=== PATIENT | male | born 1990 | race Caucasian/White ===

== ENCOUNTER 2018-04-27 13:09 | Emergency (ER) | payer OTHER ==
[~2018-04-27] VITALS: Ht 188 cm; Wt 109.1 kg
[~2018-04-27 13:09] MED LIST: ATEN25TA PO; OLAN5TAB2 PO
[2018-04-27] MEDS ORDERED: LIDOCAINE 5% TRANSDERMAL PATCH TD ONE (14:00)
[2018-04-27] MEDS ORDERED: ATENOLOL 25 MG TABLET PO ONE (14:00)
[2018-04-27] MEDS ORDERED: IBUPROFEN 600 MG TABLET PO ONE (14:00)
[2018-04-27 15:10] VITALS: BP 160/95
== END 2018-04-27 15:31 | disposition home or self-care (01) ==
LOC: EMS 13:12
DX: S20.212A Contusion of left front wall of thorax, initial encounter (principal); I10 Essential (primary) hypertension; F20.9 Schizophrenia, unspecified; F12.90 Cannabis use, unspecified, uncomplicated; Z87.891 Personal history of nicotine dependence; W22.8XXA Striking against or struck by other objects, initial encounter; Y93.89 Activity, other specified; Y92.098 Other place in other non-institutional residence as the place of occurrence of the external cause; Y99.8 Other external cause status

== ENCOUNTER 2018-09-28 23:32 | Emergency (ER) | payer OTHER ==
[~2018-09-28] VITALS: Ht 190.5 cm; Wt 111.4 kg
[2018-09-29] MEDS ORDERED: CloNIDine HCL 0.2 MG TABLET PO ONE (00:15)
[2018-09-29] MEDS ORDERED: LORazepam 2 MG TABLET PO ONE (00:15)
[2018-09-29 00:50] VITALS: BP 152/87
== END 2018-09-29 01:05 | disposition home or self-care (01) ==
LOC: EMS 23:35
DX: F41.9 Anxiety disorder, unspecified (principal); F15.10 Other stimulant abuse, uncomplicated; R06.02 Shortness of breath; I10 Essential (primary) hypertension; F12.90 Cannabis use, unspecified, uncomplicated; Z86.59 Personal history of other mental and behavioral disorders; Z87.891 Personal history of nicotine dependence
CPT/HCPCS: 93005; 99284; G0480

== ENCOUNTER 2018-11-30 05:19 | Emergency (ER) | payer OTHER ==
[~2018-11-30] VITALS: Ht 188 cm; Wt 111.4 kg
[2018-11-30] MEDS ORDERED: DiphenhydrAMINE HCL 50 MG/ML VIAL IVP ONE (06:15)
[2018-11-30] MEDS ORDERED: CloNIDine HCL 0.1 MG TABLET PO ONE (06:15)
[2018-11-30] MEDS ORDERED: METOCLOPRAMIDE HCL 5 MG/ML 2 ML VIAL IVP ONE (06:15)
[2018-11-30] MEDS ORDERED: SODIUM CHLORIDE 0.9% 1,000 ML IV ONE (06:15)
[2018-11-30 07:40] VITALS: BP 202/116
== END 2018-11-30 08:05 | disposition home or self-care (01) ==
LOC: EMS 05:19
DX: I10 Essential (primary) hypertension (principal); F15.10 Other stimulant abuse, uncomplicated; F43.9 Reaction to severe stress, unspecified; F17.210 Nicotine dependence, cigarettes, uncomplicated; F20.9 Schizophrenia, unspecified; Z79.899 Other long term (current) drug therapy
CPT/HCPCS: 96374; 96375; 99283; 99406; J1200; J2765; J7030

== ENCOUNTER 2019-02-15 20:47 | Emergency (ER) | payer OTHER ==
[~2019-02-15] VITALS: Ht 185.4 cm; Wt 104.5 kg
[2019-02-15 22:35] LABS: BASOPHILS % (AUTO) 0.6 % (0.0-2.0); EOSINOPHILS % (AUTO) 1.7 % (1.0-6.0); HEMATOCRIT 43.9 % (41-53); HEMOGLOBIN 14.6 g/dL (13.5-17.5); LYMPHOCYTES # (AUTO) 2.3 K/uL (1.0-4.8); LYMPHOCYTES % (AUTO) 33.3 % (22.0-44.0); MEAN CORPUSCULAR HEMOGLOBIN 28.8 pg (26.0-34.0); MEAN CORPUSCULAR HGB CONC 33.2 G/dL (31.0-37.0); MEAN CORPUSCULAR VOLUME 87 fL (80-100); MONOCYTES # (AUTO) 0.6 K/uL (0.1-1.0); MONOCYTES % (AUTO) 8.6 % (2.0-9.0); NEUTROPHILS # (AUTO) 3.9 K/uL (1.8-7.7); NEUTROPHILS % (AUTO) 55.8 % (40.0-70.0); PLATELET COUNT (AUTO) 278 K/uL (150-450); RED BLOOD CELL COUNT(AUTO) 5.06 MIL/uL (4.50-5.90); RED CELL DISTRIBUTION WIDTH 13.2 % (11.5-14.5)
[2019-02-15 23:03] LABS: ANION GAP 4 mmol/L (8-16); CALCIUM, TOTAL 8.7 mg/dL (8.8-10.5); CARBON DIOXIDE 33 mmol/L (22-29); CHLORIDE 100 mmol/L (98-107); CREATININE 0.88 mg/dL (0.60-1.30); GLOMERULAR FILTR. RATE CALC > 60 mL/min (>60); GLUCOSE,RANDOM 84 mg/dL (70-110); POTASSIUM 4.4 mmol/L (3.5-5.1); SODIUM SERUM 137 mmol/L (136-145); UREA NITROGEN, BLOOD 17 mg/dL (7-18)
[2019-02-15 23:09] LABS: ALANINE AMINOTRANSFERASE 35 U/L (12-78); ALBUMIN 4.3 g/dL (3.4-5.0); ALKALINE PHOSPHATASE 72 U/L (46-116); ASPARTATE AMINOTRANSFERASE 27 U/L (15-37); BILIRUBIN,TOTAL 1.2 mg/dL (0.1-1.0); TOTAL PROTEIN, SERUM 7.4 g/dL (6.4-8.2)
[2019-02-16] MEDS ORDERED: OLANZapine 5 MG TABLET PO ONE (06:45)
[2019-02-16 10:00] VITALS: BP 139/101
== END 2019-02-16 10:31 | disposition home or self-care (01) ==
LOC: EMS 20:49
DX: F20.9 Schizophrenia, unspecified (principal); I10 Essential (primary) hypertension; F17.210 Nicotine dependence, cigarettes, uncomplicated; F19.90 Other psychoactive substance use, unspecified, uncomplicated; Z59.0 Homelessness
CPT/HCPCS: 80053; 85025; 99284; G0480

== ENCOUNTER 2019-02-16 11:36 | Inpatient (IN) | payer OTHER, MEDICAID ==
[~2019-02-16] VITALS: Ht 188 cm; Wt 98.9 kg
[2019-02-16 12:36] LABS: BASOPHILS % (AUTO) 0.8 % (0.0-2.0); EOSINOPHILS % (AUTO) 1.5 % (1.0-6.0); HEMATOCRIT 44.7 % (41-53); HEMOGLOBIN 14.9 g/dL (13.5-17.5); LYMPHOCYTES # (AUTO) 1.7 K/uL (1.0-4.8); LYMPHOCYTES % (AUTO) 34.3 % (22.0-44.0); MEAN CORPUSCULAR HGB CONC 33.2 G/dL (31.0-37.0); MEAN CORPUSCULAR VOLUME 87 fL (80-100); MONOCYTES # (AUTO) 0.4 K/uL (0.1-1.0); MONOCYTES % (AUTO) 7.1 % (2.0-9.0); NEUTROPHILS # (AUTO) 2.8 K/uL (1.8-7.7); NEUTROPHILS % (AUTO) 56.3 % (40.0-70.0); PLATELET COUNT (AUTO) 261 K/uL (150-450); RED BLOOD CELL COUNT(AUTO) 5.13 MIL/uL (4.50-5.90); RED CELL DISTRIBUTION WIDTH 13.3 % (11.5-14.5)
[2019-02-16 12:46] LABS: ANION GAP 3 mmol/L (8-16); CALCIUM, TOTAL 8.9 mg/dL (8.8-10.5); CARBON DIOXIDE 31 mmol/L (22-29); CHLORIDE 103 mmol/L (98-107); CREATININE 0.81 mg/dL (0.60-1.30); GLOMERULAR FILTR. RATE CALC > 60 mL/min (>60); GLUCOSE,RANDOM 82 mg/dL (70-110); POTASSIUM 4.2 mmol/L (3.5-5.1); SODIUM SERUM 137 mmol/L (136-145); UREA NITROGEN, BLOOD 12 mg/dL (7-18)
[2019-02-16 12:57] LABS: ALANINE AMINOTRANSFERASE 28 U/L (12-78); ALBUMIN 4.2 g/dL (3.4-5.0); ALKALINE PHOSPHATASE 67 U/L (46-116); ASPARTATE AMINOTRANSFERASE 22 U/L (15-37); BILIRUBIN,TOTAL 1.3 mg/dL (0.1-1.0); TOTAL PROTEIN, SERUM 7.4 g/dL (6.4-8.2)
[2019-02-16 17:22] VITALS: BP 139/76
[2019-02-16] MEDS ORDERED: PNEUMOCOCCAL VACCINE POLYVALENT 0.5 ML VIAL [PPSV23] IM ONE (19:15)
[2019-02-16] MEDS ORDERED: ONDANSETRON HCL 4 MG TABLET PO PRN (19:30)
[2019-02-16] MEDS ORDERED: MAGNESIUM HYDROXIDE SUSPENSION 30 ML UDCUP PO PRN (19:30)
[2019-02-16] MEDS ORDERED: NICOTINE 14 MG/24 HOUR PATCH TD PRN (19:30)
[2019-02-16] MEDS ORDERED: PETROLATUM,WHITE 28 GM JELLY TP PRN (19:30)
[2019-02-16] MEDS ORDERED: IBUPROFEN 400 MG TABLET PO PRN (19:30)
[2019-02-16] MEDS ORDERED: ALBUTEROL SULFATE HFA 90 MCG/PUFF 8 GM INHALER IH PRN (19:30)
[2019-02-16] MEDS ORDERED: CloNIDine HCL 0.1 MG TABLET PO PRN (19:30)
[2019-02-16] MEDS ORDERED: GuaiFENesin/D-METHORPHAN [SUGAR-FREE] 200-20MG/10 ML SYRUP UDCUP PO PRN (19:30)
[2019-02-16] MEDS ORDERED: ACETAMINOPHEN 325 MG TABLET PO PRN (19:30)
[2019-02-16] MEDS ORDERED: DOCUSATE SODIUM 100 MG CAPSULE PO PRN (19:30)
[2019-02-17 03:22] VITALS: BP 117/72
[2019-02-17 08:11] VITALS: BP 136/68
[2019-02-17 08:27] LABS: CHOL/HDL RATIO 3.2 (4.2-7.3)
[2019-02-17 16:00] VITALS: BP 155/90
[2019-02-17] MEDS: OLANZapine 5 MG TABLET PO SCH (20:31)
[2019-02-18 00:10] VITALS: BP 138/87
[2019-02-18] MEDS: LORazepam 2 MG TABLET PO PRN ×2 (00:14→18:58)
[2019-02-18 16:00] VITALS: BP 135/80
[2019-02-18] MEDS: OLANZapine 5 MG TABLET PO SCH (20:37)
[2019-02-18] MEDS: ZOLPIDEM TARTRATE 10 MG TABLET PO PRN (21:03)
[2019-02-19 08:15] VITALS: BP 190/88
[2019-02-19] MEDS: LORazepam 2 MG TABLET PO PRN ×3 (08:21→17:09)
[2019-02-19 09:20] VITALS: BP 149/93
[2019-02-19] MEDS: OLANZapine 5 MG RAPDIS TABLET PO PRN ×2 (13:06→17:13)
[2019-02-19] MEDS: ATENOLOL 25 MG TABLET PO SCH (14:20)
[2019-02-19 16:00] VITALS: BP 151/105
[2019-02-19 17:30] VITALS: BP 165/111
[2019-02-19] MEDS: AmLODIPine BESYLATE 5 MG TABLET PO SCH (17:41)
[2019-02-19] MEDS: OLANZapine 5 MG TABLET PO SCH (20:30)
[2019-02-19] MEDS: ZOLPIDEM TARTRATE 10 MG TABLET PO PRN (20:30)
[2019-02-19 22:30] VITALS: BP 140/90
[2019-02-20] MEDS: LORazepam 2 MG TABLET PO PRN ×4 (00:48→20:07)
[2019-02-20] MEDS: OLANZapine 5 MG RAPDIS TABLET PO PRN ×2 (00:49→20:54)
[2019-02-20 01:00] VITALS: BP 140/92
[2019-02-20] MEDS: AmLODIPine BESYLATE 5 MG TABLET PO SCH (08:21)
[2019-02-20] MEDS: ATENOLOL 25 MG TABLET PO SCH (08:21)
[2019-02-20 08:41] VITALS: BP 146/78
[2019-02-20 16:02] VITALS: BP 135/82
[2019-02-20] MEDS: ZOLPIDEM TARTRATE 10 MG TABLET PO PRN (20:07)
[2019-02-20] MEDS: OLANZapine 10 MG TABLET PO SCH (20:07)
[2019-02-21] MEDS: OLANZapine 5 MG RAPDIS TABLET PO PRN (02:05)
[2019-02-21] MEDS: LORazepam 2 MG TABLET PO PRN ×3 (02:05→20:30)
[2019-02-21 02:10] VITALS: BP 138/85
[2019-02-21 08:05] VITALS: BP 140/78
[2019-02-21] MEDS: ATENOLOL 25 MG TABLET PO SCH (08:42)
[2019-02-21] MEDS: AmLODIPine BESYLATE 5 MG TABLET PO SCH (08:42)
[2019-02-21 16:38] VITALS: BP 135/88
[2019-02-21] MEDS: ZOLPIDEM TARTRATE 10 MG TABLET PO PRN (20:30)
[2019-02-21] MEDS: OLANZapine 10 MG TABLET PO SCH (20:30)
[2019-02-22 00:55] VITALS: BP 128/78
[2019-02-22] MEDS: LORazepam 2 MG TABLET PO PRN ×2 (01:54→19:27)
[2019-02-22] MEDS: OLANZapine 5 MG RAPDIS TABLET PO PRN (01:54)
[2019-02-22] MEDS: AmLODIPine BESYLATE 5 MG TABLET PO SCH (08:47)
[2019-02-22] MEDS: ATENOLOL 25 MG TABLET PO SCH (08:48)
[2019-02-22] MEDS: LOPERAMIDE HCL 2 MG CAPSULE PO PRN ×2 (12:23→22:24)
[2019-02-22 15:20] VITALS: BP 156/79
[2019-02-22 16:00] VITALS: BP 141/85
[2019-02-22] MEDS: OLANZapine 10 MG TABLET PO SCH (20:02)
[2019-02-23 02:29] VITALS: BP 137/84
[2019-02-23 08:00] VITALS: BP 127/79
[2019-02-23] MEDS: AmLODIPine BESYLATE 5 MG TABLET PO SCH (08:16)
[2019-02-23] MEDS: ATENOLOL 25 MG TABLET PO SCH (09:00)
[2019-02-23] MEDS: MAG HYDROX/AL HYDROX/SIMETH ES 30 ML SUSPENSION UDCUP PO PRN (12:22)
[2019-02-23 16:08] VITALS: BP 127/69
[2019-02-23] MEDS: LOPERAMIDE HCL 2 MG CAPSULE PO PRN (19:17)
[2019-02-23] MEDS: OLANZapine 10 MG TABLET PO SCH (20:32)
[2019-02-24 05:47] VITALS: BP 122/71
[2019-02-24 08:00] VITALS: BP 154/78
[2019-02-24] MEDS: ATENOLOL 25 MG TABLET PO SCH (08:36)
[2019-02-24] MEDS: AmLODIPine BESYLATE 5 MG TABLET PO SCH (08:36)
[2019-02-24 16:26] VITALS: BP 125/79
[2019-02-24] MEDS: MAG HYDROX/AL HYDROX/SIMETH ES 30 ML SUSPENSION UDCUP PO PRN (17:11)
[2019-02-24] MEDS: LOPERAMIDE HCL 2 MG CAPSULE PO PRN (19:04)
[2019-02-24] MEDS: OLANZapine 10 MG TABLET PO SCH (20:39)
[2019-02-24] MEDS: MetroNIDAZOLE 500 MG TABLET PO SCH (21:03)
[2019-02-25 05:55] VITALS: BP 122/75
[2019-02-25 08:13] VITALS: BP 139/79
[2019-02-25] MEDS: MetroNIDAZOLE 500 MG TABLET PO SCH ×3 (10:00→16:49)
[2019-02-25] MEDS: ATENOLOL 25 MG TABLET PO SCH (10:00)
[2019-02-25] MEDS: AmLODIPine BESYLATE 5 MG TABLET PO SCH (10:00)
[2019-02-25 10:50] LABS: C.DIFF GDH ANTIGEN, Stool Negative (Negative); C.DIFF TOXINS A&B, Stool Negative (Negative)
[2019-02-25 17:52] VITALS: BP 140/92
[2019-02-25] MEDS: LORazepam 2 MG TABLET PO PRN (20:36)
[2019-02-25] MEDS: OLANZapine 7.5 MG TABLET PO SCH (20:36)
[2019-02-26 06:10] VITALS: BP 123/78
[2019-02-26 08:30] VITALS: BP 141/76
[2019-02-26] MEDS: ATENOLOL 25 MG TABLET PO SCH (08:35)
[2019-02-26] MEDS: AmLODIPine BESYLATE 5 MG TABLET PO SCH (08:35)
[2019-02-26] MEDS: MetroNIDAZOLE 500 MG TABLET PO SCH ×3 (08:35→16:58)
[2019-02-26] MEDS: LORazepam 2 MG TABLET PO PRN ×2 (10:02→20:30)
[2019-02-26 16:00] VITALS: BP 141/89
[2019-02-26] MEDS: OLANZapine 7.5 MG TABLET PO SCH (20:29)
[2019-02-26] MEDS: LOPERAMIDE HCL 2 MG CAPSULE PO PRN (20:29)
[2019-02-26] MEDS: ZOLPIDEM TARTRATE 10 MG TABLET PO PRN (20:56)
[2019-02-27 06:45] VITALS: BP 153/99
[2019-02-27] MEDS: AmLODIPine BESYLATE 5 MG TABLET PO SCH (08:04)
[2019-02-27] MEDS: MetroNIDAZOLE 500 MG TABLET PO SCH ×3 (08:04→16:07)
[2019-02-27] MEDS: ATENOLOL 25 MG TABLET PO SCH (08:04)
[2019-02-27 08:23] VITALS: BP 139/85
[2019-02-27] MEDS: LORazepam 2 MG TABLET PO PRN ×2 (11:16→19:32)
[2019-02-27 16:00] VITALS: BP 142/88
[2019-02-27] MEDS: OLANZapine 7.5 MG TABLET PO SCH (20:06)
[2019-02-27] MEDS: ZOLPIDEM TARTRATE 10 MG TABLET PO PRN (20:06)
[2019-02-28] MEDS: LORazepam 2 MG TABLET PO PRN ×4 (00:05→18:14)
[2019-02-28 00:07] VITALS: BP 150/88
[2019-02-28] MEDS: ATENOLOL 25 MG TABLET PO SCH (08:32)
[2019-02-28] MEDS: MetroNIDAZOLE 500 MG TABLET PO SCH ×3 (08:32→16:22)
[2019-02-28] MEDS: AmLODIPine BESYLATE 5 MG TABLET PO SCH (08:32)
[2019-02-28 08:43] VITALS: BP 158/98
[2019-02-28 09:37] VITALS: BP 130/78
[2019-02-28 16:00] VITALS: BP 148/90
[2019-02-28] MEDS: ZOLPIDEM TARTRATE 10 MG TABLET PO PRN (20:21)
[2019-02-28] MEDS: OLANZapine 7.5 MG TABLET PO SCH (20:21)
[2019-03-01 05:07] VITALS: BP_SYST 161; BP_SYST 167; BP_DIAS 102; BP_DIAS 107
[2019-03-01] MEDS: LORazepam 2 MG TABLET PO PRN ×2 (05:07→09:09)
[2019-03-01] MEDS: OLANZapine 5 MG RAPDIS TABLET PO PRN (07:13)
[2019-03-01 08:23] VITALS: BP 173/119
[2019-03-01] MEDS: ATENOLOL 25 MG TABLET PO SCH (09:00)
[2019-03-01] MEDS: MetroNIDAZOLE 500 MG TABLET PO SCH (09:00)
[2019-03-01] MEDS: AmLODIPine BESYLATE 5 MG TABLET PO SCH (09:01)
[2019-03-01] MEDS ORDERED: METR500 PO (10:11)
[2019-03-01] MEDS ORDERED: AMLO5TAB9 PO (10:11)
== END 2019-03-01 13:40 | disposition home or self-care (01) | DRG 885 ==
LOC: EMS 11:37 → B3A 16:24
DX: F25.0 Schizoaffective disorder, bipolar type (principal); F41.9 Anxiety disorder, unspecified; I10 Essential (primary) hypertension; F15.10 Other stimulant abuse, uncomplicated; F17.210 Nicotine dependence, cigarettes, uncomplicated; F12.10 Cannabis abuse, uncomplicated; F10.10 Alcohol abuse, uncomplicated; Z81.8 Family history of other mental and behavioral disorders; Z59.0 Homelessness; Z71.51 Drug abuse counseling and surveillance of drug abuser
CPT/HCPCS: 87324; 87449; 90732; G0480

== ENCOUNTER 2019-04-25 00:11 | Emergency (ER) | payer OTHER, MEDICAID ==
[~2019-04-25] VITALS: Ht 188 cm; Wt 106.8 kg
[~2019-04-25 00:11] MED LIST changes: +AMLO5TAB9 PO; +METR500 PO
[2019-04-25 02:24] VITALS: BP 142/98
== END 2019-04-25 02:26 | disposition home or self-care (01) ==
LOC: EMS 00:12
DX: S60.221A Contusion of right hand, initial encounter (principal); I10 Essential (primary) hypertension; F20.9 Schizophrenia, unspecified; F15.90 Other stimulant use, unspecified, uncomplicated; X58.XXXA Exposure to other specified factors, initial encounter; Y93.89 Activity, other specified; Y92.89 Other specified places as the place of occurrence of the external cause; Y99.8 Other external cause status

== ENCOUNTER 2019-05-19 23:03 | Emergency (ER) | payer OTHER ==
[~2019-05-19] VITALS: Ht 188 cm; Wt 104.5 kg
[~2019-05-19 23:03] MED LIST changes: -AMLO5TAB9 PO; -METR500 PO
[2019-05-20 01:04] VITALS: BP 142/78
== END 2019-05-20 04:37 | disposition home or self-care (01) ==
LOC: EMS 23:06
DX: S62.617D Displaced fracture of proximal phalanx of left little finger, subsequent encounter for fracture with routine healing (principal); S62.303D Unspecified fracture of third metacarpal bone, left hand, subsequent encounter for fracture with routine healing; I10 Essential (primary) hypertension; F20.9 Schizophrenia, unspecified; F15.90 Other stimulant use, unspecified, uncomplicated; Z79.899 Other long term (current) drug therapy; Z87.891 Personal history of nicotine dependence; X58.XXXD Exposure to other specified factors, subsequent encounter

== ENCOUNTER 2019-05-23 00:40 | Emergency (ER) | payer OTHER ==
[~2019-05-23] VITALS: Ht 188 cm; Wt 104.5 kg
[2019-05-23 01:19] VITALS: BP 162/99
[2019-05-23] MEDS ORDERED: IBUPROFEN 600 MG TABLET PO ONE (01:30)
[2019-05-23] MEDS ORDERED: ACETAMINOPHEN 500 MG TABLET PO ONE (01:30)
== END 2019-05-23 01:51 | disposition home or self-care (01) ==
LOC: EMS 00:40
DX: R51 Headache (principal); I10 Essential (primary) hypertension; F20.9 Schizophrenia, unspecified; F15.90 Other stimulant use, unspecified, uncomplicated; Z87.891 Personal history of nicotine dependence; Z79.899 Other long term (current) drug therapy
CPT/HCPCS: 99406

== ENCOUNTER 2019-06-20 20:37 | Emergency (ER) | payer OTHER ==
[~2019-06-20] VITALS: Ht 188 cm; Wt 104.5 kg
[2019-06-20] MEDS ORDERED: SODIUM CHLORIDE 0.9% 1,000 ML IV ONE (23:00)
[2019-06-20] MEDS ORDERED: ACETAMINOPHEN 500 MG TABLET PO ONE (23:00)
[2019-06-20 23:53] LABS: BASOPHILS % (AUTO) 0.5 % (0.0-2.0); EOSINOPHILS % (AUTO) 2.2 % (1.0-6.0); HEMATOCRIT 38.4 % (41-53); HEMOGLOBIN 13.1 g/dL (13.5-17.5); LYMPHOCYTES # (AUTO) 3.1 K/uL (1.0-4.8); LYMPHOCYTES % (AUTO) 38.5 % (22.0-44.0); MEAN CORPUSCULAR HEMOGLOBIN 28.5 pg (26.0-34.0); MEAN CORPUSCULAR VOLUME 84 fL (80-100); MONOCYTES # (AUTO) 0.6 K/uL (0.1-1.0); MONOCYTES % (AUTO) 7.1 % (2.0-9.0); NEUTROPHILS # (AUTO) 4.1 K/uL (1.8-7.7); NEUTROPHILS % (AUTO) 51.7 % (40.0-70.0); PLATELET COUNT (AUTO) 282 K/uL (150-450); RED BLOOD CELL COUNT(AUTO) 4.59 MIL/uL (4.50-5.90); RED CELL DISTRIBUTION WIDTH 13.4 % (11.5-14.5)
[2019-06-21 00:07] LABS: PROTHROMBIN TIME 10.3 SEC (9.4-11.6)
[2019-06-21 00:09] LABS: ANION GAP 8 mmol/L (8-16); CALCIUM, TOTAL 8.8 mg/dL (8.8-10.5); CARBON DIOXIDE 27 mmol/L (22-29); CHLORIDE 107 mmol/L (98-107); CREATININE 0.75 mg/dL (0.60-1.30); GLOMERULAR FILTR. RATE CALC > 60 mL/min (>60); GLUCOSE,RANDOM 97 mg/dL (70-110); POTASSIUM 4.2 mmol/L (3.5-5.1); SODIUM SERUM 142 mmol/L (136-145); UREA NITROGEN, BLOOD 11 mg/dL (7-18)
[2019-06-21 00:10] VITALS: BP 172/81
[2019-06-21 00:17] LABS: B-TYPE NATRIURETIC PEPTIDE 14 pg/mL (0-100)
[2019-06-21 00:31] LABS: ALANINE AMINOTRANSFERASE 33 U/L (12-78); ALBUMIN 3.8 g/dL (3.4-5.0); ALKALINE PHOSPHATASE 81 U/L (46-116); ASPARTATE AMINOTRANSFERASE 25 U/L (15-37); BILIRUBIN,TOTAL 0.5 mg/dL (0.1-1.0); CREATINE KINASE, TOTAL ONLY 156 U/L (39-308); TOTAL PROTEIN, SERUM 7.1 g/dL (6.4-8.2)
== END 2019-06-21 01:26 | disposition home or self-care (01) ==
LOC: EMS 20:39
DX: R42 Dizziness and giddiness (principal); F41.9 Anxiety disorder, unspecified; F20.9 Schizophrenia, unspecified; F19.90 Other psychoactive substance use, unspecified, uncomplicated; Z87.891 Personal history of nicotine dependence
CPT/HCPCS: 36415; 71045; 80053; 82550; 83880; 84484; 85025; 85610; 85730; 93005; 96360; 99285; G0480; J7030

== ENCOUNTER 2019-07-04 02:39 | Emergency (ER) | payer OTHER | END 2019-07-04 04:34 | disposition left against medical advice (07) | LOC: EMS 02:40 | DX: R11.0 Nausea (principal); Z53.21 Procedure and treatment not carried out due to patient leaving prior to being seen by health care provider ==

== ENCOUNTER 2019-12-22 01:57 | Emergency (ER) | payer OTHER ==
[~2019-12-22] VITALS: Ht 188 cm; Wt 104.5 kg
[~2019-12-22 01:57] MED LIST changes: +ATEN-73 PO; -ATEN25TA PO
[2019-12-22 02:00] VITALS: BP 176/109
== END 2019-12-22 02:46 | disposition left against medical advice (07) ==
LOC: EMS 01:57
DX: M54.9 Dorsalgia, unspecified (principal); Z53.21 Procedure and treatment not carried out due to patient leaving prior to being seen by health care provider

== ENCOUNTER 2020-04-13 15:32 | Inpatient (IN) | payer MEDICARE, MEDICAID ==
[~2020-04-13] VITALS: Ht 180.3 cm; Wt 90.9 kg
[2020-04-13] MEDS ORDERED: HALOPERIDOL LACTATE 5 MG/ML VIAL IM ONE (16:30)
[2020-04-13] MEDS ORDERED: DiphenhydrAMINE HCL 50 MG/ML VIAL IM ONE (16:30)
[2020-04-13] MEDS ORDERED: LORazepam 2 MG/ML VIAL IM ONE (16:30)
[2020-04-13 17:25] LABS: BASOPHILS % (AUTO) 1.3 % (0.0-2.0); EOSINOPHILS % (AUTO) 4.5 % (1.0-6.0); HEMATOCRIT 41.1 % (41-53); HEMOGLOBIN 13.9 g/dL (13.5-17.5); LYMPHOCYTES # (AUTO) 2.6 K/uL (1.0-4.8); LYMPHOCYTES % (AUTO) 38.5 % (22.0-44.0); MEAN CORPUSCULAR HEMOGLOBIN 29.3 pg (26.0-34.0); MEAN CORPUSCULAR HGB CONC 33.8 G/dL (31.0-37.0); MEAN CORPUSCULAR VOLUME 87 fL (80-100); MONOCYTES # (AUTO) 0.4 K/uL (0.1-1.0); MONOCYTES % (AUTO) 5.3 % (2.0-9.0); NEUTROPHILS # (AUTO) 3.3 K/uL (1.8-7.7); NEUTROPHILS % (AUTO) 50.4 % (40.0-70.0); PLATELET COUNT (AUTO) 278 K/uL (150-450); RED BLOOD CELL COUNT(AUTO) 4.74 MIL/uL (4.50-5.90)
[2020-04-13 17:35] LABS: ANION GAP 11 mmol/L (8-16); CALCIUM, TOTAL 8.5 mg/dL (8.8-10.5); CARBON DIOXIDE 24 mmol/L (22-29); CHLORIDE 104 mmol/L (98-107); GLOMERULAR FILTR. RATE CALC > 60 mL/min (>60); GLUCOSE,RANDOM 93 mg/dL (70-110); SODIUM SERUM 139 mmol/L (136-145); UREA NITROGEN, BLOOD 9 mg/dL (7-18)
[2020-04-13 17:41] LABS: ALANINE AMINOTRANSFERASE 30 U/L (12-78); ALBUMIN 3.9 g/dL (3.4-5.0); ALKALINE PHOSPHATASE 76 U/L (46-116); ASPARTATE AMINOTRANSFERASE 30 U/L (15-37); BILIRUBIN,TOTAL 0.3 mg/dL (0.1-1.0)
[2020-04-13 19:30] LABS: COVID AG,FIA SOURCE NASOPHARYNGEAL
[2020-04-13] MEDS ORDERED: ZOLPIDEM TARTRATE 10 MG TABLET PO PRN (19:45)
[2020-04-14] MEDS ORDERED: INFLUENZA VIRUS VACCINE QVS 2020-21 (6MO+)/PF 60 MCG/0.5 ML SYRINGE IM ONE (01:45)
[2020-04-14] MEDS ORDERED: PNEUMOCOCCAL VACCINE POLYVALENT 0.5 ML VIAL [PPSV23] IM ONE (01:45)
[2020-04-14] MEDS ORDERED: ONDANSETRON HCL 4 MG TABLET PO PRN (06:45)
[2020-04-14] MEDS ORDERED: PETROLATUM,WHITE 28 GM JELLY TP PRN (06:45)
[2020-04-14] MEDS ORDERED: ACETAMINOPHEN 325 MG TABLET PO PRN (06:45)
[2020-04-14] MEDS ORDERED: DOCUSATE SODIUM 100 MG CAPSULE PO PRN (06:45)
[2020-04-14] MEDS ORDERED: IBUPROFEN 400 MG TABLET PO PRN (06:45)
[2020-04-14] MEDS ORDERED: MAG HYDROX/AL HYDROX/SIMETH ES 30 ML SUSPENSION UDCUP PO PRN (06:45)
[2020-04-14] MEDS ORDERED: GuaiFENesin/D-METHORPHAN [SUGAR-FREE] 200-20MG/10 ML SYRUP UDCUP PO PRN (06:45)
[2020-04-14] MEDS ORDERED: NICOTINE 14 MG/24 HOUR PATCH TD PRN (06:45)
[2020-04-14] MEDS ORDERED: LOPERAMIDE HCL 2 MG CAPSULE PO PRN (06:45)
[2020-04-14] MEDS ORDERED: ALBUTEROL SULFATE HFA 90 MCG/PUFF 8 GM INHALER IH PRN (06:45)
[2020-04-14] MEDS ORDERED: CloNIDine HCL 0.1 MG TABLET PO PRN (06:45)
[2020-04-14] MEDS ORDERED: MAGNESIUM HYDROXIDE SUSPENSION 30 ML UDCUP PO PRN (06:45)
[2020-04-14] MEDS: ATENOLOL 25 MG TABLET PO SCH (08:39)
[2020-04-14] MEDS: LORazepam 2 MG TABLET PO PRN (16:30)
[2020-04-14] MEDS: HALOPERIDOL 5 MG TABLET PO PRN (16:30)
[2020-04-14 18:19] VITALS: BP 120/84
[2020-04-14] MEDS: QUEtiapine FUMARATE 200 MG TABLET PO SCH ×2 (21:00→21:12)
[2020-04-15 06:07] VITALS: BP 126/79
[2020-04-15] MEDS: ATENOLOL 25 MG TABLET PO SCH (08:13)
[2020-04-15] MEDS: LORazepam 2 MG TABLET PO PRN (14:20)
[2020-04-15] MEDS: QUEtiapine FUMARATE 200 MG TABLET PO SCH (20:49)
[2020-04-16 06:04] VITALS: BP 148/99
[2020-04-16] MEDS: LORazepam 2 MG TABLET PO PRN ×2 (06:29→20:16)
[2020-04-16] MEDS: HALOPERIDOL 5 MG TABLET PO PRN (06:29)
[2020-04-16] MEDS: ATENOLOL 25 MG TABLET PO SCH (08:31)
[2020-04-16 08:40] VITALS: BP 155/96
[2020-04-16 16:26] VITALS: BP 139/80
[2020-04-16] MEDS: QUEtiapine FUMARATE 200 MG TABLET PO SCH (20:16)
[2020-04-17 06:21] VITALS: BP 149/91
[2020-04-17] MEDS: ATENOLOL 25 MG TABLET PO SCH (08:53)
[2020-04-17 16:09] VITALS: BP 147/93
[2020-04-17] MEDS: LORazepam 2 MG TABLET PO PRN (16:14)
[2020-04-17] MEDS: HALOPERIDOL 5 MG TABLET PO PRN (17:09)
[2020-04-17] MEDS: QUEtiapine FUMARATE 200 MG TABLET PO SCH (20:28)
[2020-04-18 00:02] VITALS: BP 142/65
[2020-04-18] MEDS: ATENOLOL 25 MG TABLET PO SCH (08:37)
[2020-04-18] MEDS: LORazepam 2 MG TABLET PO PRN ×2 (08:37→15:58)
[2020-04-18 09:36] VITALS: BP 153/104
[2020-04-18 15:26] VITALS: BP 138/88
[2020-04-18 16:31] VITALS: BP 142/89
[2020-04-18] MEDS: QUEtiapine FUMARATE 200 MG TABLET PO SCH (20:17)
[2020-04-19 00:02] VITALS: BP 141/90
[2020-04-19 08:02] VITALS: BP 159/103
[2020-04-19] MEDS: ATENOLOL 25 MG TABLET PO SCH (08:23)
[2020-04-19] MEDS: LORazepam 2 MG TABLET PO PRN ×2 (13:20→17:25)
[2020-04-19 17:54] VITALS: BP 163/98
[2020-04-19] MEDS: HALOPERIDOL 5 MG TABLET PO PRN (18:59)
[2020-04-19] MEDS: QUEtiapine FUMARATE 200 MG TABLET PO SCH (20:27)
[2020-04-20 06:25] VITALS: BP 151/97
[2020-04-20] MEDS: ATENOLOL 25 MG TABLET PO SCH (08:18)
[2020-04-20 08:50] VITALS: BP 138/91
[2020-04-20] MEDS ORDERED: AmLODIPine BESYLATE 5 MG TABLET PO SCH (09:00)
[2020-04-20] MEDS ORDERED: FOLIC ACID 1 MG TABLET PO SCH (09:00)
[2020-04-20] MEDS ORDERED: THIAMINE 100 MG TABLET PO SCH (09:00)
[2020-04-20] MEDS ORDERED: AMLO-257 PO (15:31)
[2020-04-20] MEDS ORDERED: ATEN-73 PO ×2 (15:31→15:35)
[2020-04-20] MEDS ORDERED: QUET200T PO (15:35)
== END 2020-04-20 16:35 | disposition home or self-care (01) | DRG 885 ==
LOC: EMS 15:32 → B3A 19:45
PROVIDERS: ADMIT Psychiatry & Neurology Child & Adolescent Psychiatry; ATTEND Psychiatry & Neurology Child & Adolescent Psychiatry
DX: F20.0 Paranoid schizophrenia (principal); Z91.5 Personal history of self-harm; Z59.0 Homelessness; I10 Essential (primary) hypertension; G44.209 Tension-type headache, unspecified, not intractable; F17.210 Nicotine dependence, cigarettes, uncomplicated; Z20.828 Contact with and (suspected) exposure to other viral communicable diseases; Z72.89 Other problems related to lifestyle; Z28.21 Immunization not carried out because of patient refusal
CPT/HCPCS: 87426; 90686; 90732; 99291; G0480; J1200; J1630; J2060

== ENCOUNTER 2020-04-21 21:38 | Emergency (ER) | payer OTHER ==
[~2020-04-21] VITALS: Ht 180.3 cm; Wt 86.4 kg
[~2020-04-21 21:38] MED LIST changes: +AMLO-257 PO; +QUET200T PO
[2020-04-21 21:47] VITALS: BP 161/87
== END 2020-04-21 23:45 | disposition left against medical advice (07) ==
LOC: EMS 21:38
DX: M54.5 Low back pain (principal); Z53.21 Procedure and treatment not carried out due to patient leaving prior to being seen by health care provider

== ENCOUNTER 2021-06-09 20:24 | Emergency (ER) | payer OTHER ==
[~2021-06-09] VITALS: Ht 180.3 cm; Wt 98.0 kg
[~2021-06-09 20:24] MED LIST changes: -OLAN5TAB2 PO
[2021-06-09] MEDS ORDERED: HALOPERIDOL LACTATE 5 MG/ML VIAL IM ONE (22:15)
[2021-06-09] MEDS ORDERED: DiphenhydrAMINE HCL 50 MG/ML VIAL IM ONE (22:15)
[2021-06-09 22:45] LABS: COVID AG,FIA SOURCE NASOPHARYNGEAL
[2021-06-09 22:55] LABS: BASOPHILS % (AUTO) 0.7 % (0.0-2.0); EOSINOPHILS % (AUTO) 4.7 % (1.0-6.0); HEMATOCRIT 42.3 % (41-53); HEMOGLOBIN 14.5 g/dL (13.5-17.5); LYMPHOCYTES # (AUTO) 1.2 K/uL (1.0-4.8); MEAN CORPUSCULAR HEMOGLOBIN 29.3 pg (26.0-34.0); MEAN CORPUSCULAR HGB CONC 34.3 G/dL (31.0-37.0); MEAN CORPUSCULAR VOLUME 85 fL (80-100); MONOCYTES # (AUTO) 0.3 K/uL (0.1-1.0); MONOCYTES % (AUTO) 7.2 % (2.0-9.0); NEUTROPHILS # (AUTO) 2.5 K/uL (1.8-7.7); NEUTROPHILS % (AUTO) 58.4 % (40.0-70.0); PLATELET COUNT (AUTO) 227 K/uL (150-450); RED BLOOD CELL COUNT(AUTO) 4.95 MIL/uL (4.50-5.90); RED CELL DISTRIBUTION WIDTH 13.1 % (11.5-14.5)
[2021-06-09 22:57] LABS: AMPHET/METH SCREEN,URINE POSITIVE (NEGATIVE); BARBITURATE SCREEN, URINE NEGATIVE (NEGATIVE); BENZODIAZEPINES SCREEN,URINE NEGATIVE (NEGATIVE); CANNABINOID SCREEN,URINE POSITIVE (NEGATIVE); COCAINE SCREEN,URINE NEGATIVE (NEGATIVE); METHADONE SCREEN, URINE NEGATIVE (NEGATIVE); OPIATE SCREEN,URINE NEGATIVE (NEGATIVE)
[2021-06-09 22:58] LABS: PHENCYCLIDINE SCREEN,URINE NEGATIVE (NEGATIVE)
[2021-06-09 23:02] LABS: ANION GAP 13 mmol/L (8-16); CALCIUM, TOTAL 8.3 mg/dL (8.8-10.5); CARBON DIOXIDE 25 mmol/L (22-29); CHLORIDE 105 mmol/L (98-107); CREATININE 0.78 mg/dL (0.60-1.30); GLOMERULAR FILTR. RATE CALC > 60 mL/min (>60); GLUCOSE,RANDOM 114 mg/dL (70-110); POTASSIUM 3.9 mmol/L (3.5-5.1); SODIUM SERUM 143 mmol/L (136-145); UREA NITROGEN, BLOOD 11 mg/dL (7-18)
[2021-06-09 23:10] LABS: ALANINE AMINOTRANSFERASE 60 U/L (12-78); ALKALINE PHOSPHATASE 69 U/L (46-116); ASPARTATE AMINOTRANSFERASE 40 U/L (15-37); BILIRUBIN,TOTAL 0.3 mg/dL (0.1-1.0)
[2021-06-10 04:19] VITALS: BP 145/90
[2021-06-10] MEDS ORDERED: ONDANSETRON HCL 4 MG TABLET PO ONE (04:30)
== END 2021-06-10 05:27 | disposition home or self-care (01) ==
LOC: EMS 20:29
DX: F10.129 Alcohol abuse with intoxication, unspecified (principal); F20.9 Schizophrenia, unspecified; F15.10 Other stimulant abuse, uncomplicated; F17.210 Nicotine dependence, cigarettes, uncomplicated; I10 Essential (primary) hypertension; Z20.822 Contact with and (suspected) exposure to COVID-19
CPT/HCPCS: 36415; 80053; 80307; 85025; 87426; 96372; 99291; G0480; J1200; J1630; Q0162